=== PATIENT | male | born 1950 | race Caucasian/White ===

== ENCOUNTER → 2019-02-27 | Outpatient (CLI) | payer MEDICARE, MEDICAID | LOC: GOCC 16:06 | PROVIDERS: ATTEND Internal Medicine | DX: N40.1 Benign prostatic hyperplasia with lower urinary tract symptoms (principal); R53.81 Other malaise; D52.8 Other folate deficiency anemias; I10 Essential (primary) hypertension; F22 Delusional disorders ==

== ENCOUNTER 2019-02-28 15:55 | Inpatient (IN) | payer MEDICARE, MEDICAID ==
--- NOTE | 2019-02-28 16:08 | ED.PDOC ---
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 AND HE IS JOANNA SP STROKE WITH LEFT SIDED HEMIPARESIS - History of Present Illness Timing/Duration: getting worse, other - ONSET TUESDAY Severity: moderate Improving Factors: nothing Worsening Factors: nothing Associated Symptoms: denies symptoms Allergies/Adverse Reactions: Allergies Penicillins Allergy (Verified 07/31/15 13:17) Home Medications: Ambulatory Orders Amlodipine Besylate [Norvasc] 2.5 mg PO DAILY 07/31/15 Aspirin [Aspirin Adult Low Dose] 81 mg PO DAILY 07/31/15 Clopidogrel Bisulfate [Plavix] 75 mg PO DAILY 07/31/15 Cyanocobalamin [Vitamin B12] 1,000 mcg PO DAILY 07/31/15 Duloxetine HCl [Cymbalta] 07/31/15 Ferrous Sulfate 325 mg PO DAILY 07/31/15 Finasteride [Proscar] 5 mg PO DAILY 07/31/15 Fluticasone Prop 0.05% Nasal [Flonase Nasal K[place]aid] 50 mcg BNAS BID 07/31/15 Folic Acid 1 mg PO DAILY 07/31/15 Gabapentin [Neurontin] 100 mg PO BID 07/31/15 HYDROcodone 10MG/APAP 325MG [Sandy 10/325] 07/31/15 Levetiracetam [Keppra] 500 mg PO BID 07/31/15 Meloxicam [Mobic] 7.5 mg PO DAILY 07/31/15 Pseudoephedrine HCl 30 mg PO BID 07/31/15 Simvastatin [Zocor] 20 mg PO BEDTIME 07/31/15 Tamsulosin HCl [Flomax] 0.4 mcg CONNIE BID 07/31/15 raNITIdine HCL [Zantac] 150 mg PO BID 07/31/15 Review of Systems - Review of Systems Constitutional: States: chills, fever, weakness EENTM: States: no symptoms reported Respiratory: States: no symptoms reported Cardiology: States: no symptoms reported Gastrointestinal/Abdominal: States: no symptoms reported Genitourinary: States: no symptoms reported Musculoskeletal: States: no symptoms reported Skin: States: no symptoms reported Neurological: States: no symptoms reported Endocrine: States: no symptoms reported Hematologic/Lymphatic: States: no symptoms reported Past Medical History (General) - Patient Medical History Hx Seizures: Yes Hx Stroke: No Hx Dementia: No Hx Asthma: No Hx of COPD: No Hx Cardiac Disorders: Yes Hx Congestive Heart Failure: No Hx Pacemaker: No Hx Hypertension: Yes Hx Thyroid Disease: No Hx Diabetes: No Hx Gastroesophageal Reflux: Yes Hx Renal Disease: No Hx Cancer: No Hx of HIV: No Hx Hepatitis C: No Hx MRSA: Yes - Toe 2012 MRSA Source:: Wound - Vaccination History Hx Tetanus, Diphtheria Vaccination: Yes Hx Influenza Vaccination: Yes Hx Pneumococcal Vaccination: Yes - Social History Hx Tobacco Use: No Hx Chewing Tobacco Use: No Hx Alcohol Use: No Hx Substance Use: No Hx Substance Use Treatment: No Hx Depression: Yes Hx Physical Abuse: No Hx Emotional Abuse: No Hx Suspected Abuse: No - Female History Patient : No Family Medical History - Family History Father Family History: Unknown Physical Exam - Physical Exam General Appearance: Alert Eye Exam: bilateral normal Ears, Nose, Throat: hearing grossly normal, normal ENT inspection, normal pharynx Neck: non-tender, full range of motion, supple Respiratory: chest non-tender, lungs clear, normal breath sounds, no respiratory distress, no accessory muscle use, respiratory distress Cardiovascular/Chest: normal peripheral pulses, regular rate, rhythm, no edema, no gallop, no JVD, no murmur Gastrointestinal/Abdominal: normal bowel sounds, non tender, soft, no organomegaly, no pulsatile mass Back Exam: other - RIGHT BELOW ELBOW AMPUATATION LEFT HEMIPLEGIA OLD Progress - Results/Orders Results/Orders: Laboratory Tests 02/28/19 02/28/19 02/28/19 16:30 16:30 16:30 WBC 22.7 H* RBC 4.50 L Hgb 14.4 Hct 41.5 L MCV 92.1 MCH 32.0 H MCHC 34.7 RDW 13.8 Plt Count 332 MPV 8.3 Absolute Neuts (auto) Not Reportable Absolute Lymphs (auto) Not Reportable Absolute Monos (auto) Not Reportable Absolute Eos (auto) Not Reportable Neutrophils % Not Reportable Neutrophils % (Manual) 90.0 H Lymphocytes % Not Reportable Lymphocytes % (Manual) 3.0 Monocytes % Not Reportable Monocytes % (Manual) 6.0 Eosinophils % Not Reportable Basophils % Not Reportable Band Neutrophils 1.0 Platelet Estimate Normal Charles Cells 1+ RBC Morph Comment PT 12.0 H INR 1.20 H PTT (SP) 27.4 Sodium 130 L Potassium 2.3 L* Chloride 94 L Carbon Dioxide 21 Anion Gap 17.3 BUN 39 H Creatinine 1.64 H BUN/Creatinine Ratio 23.8 H Random Glucose 116 H Serum Osmolality 271.2 L Lactic Acid Calcium 7.9 L Total Bilirubin 1.2 H AST 70 H ALT 50 Alkaline Phosphatase 77 Serum Total Protein 6.7 Albumin 2.9 L Globulin 3.8 H Albumin/Globulin Ratio 0.8 L Urine Color Urine Appearance Urine pH Ur Specific [place] Urine Protein Urine Glucose (UA) Urine Ketones Urine Blood Urine Nitrite Urine Bilirubin Urine Urobilinogen Ur Leukocyte Esterase Urine RBC Urine WBC Ur Epithelial Cells Urine Bacteria 02/28/19 02/28/19 17:55 19:33 WBC RBC Hgb Hct MCV MCH MCHC RDW Plt Count MPV Absolute Neuts (auto) Absolute Lymphs (auto) Absolute Monos (auto) Absolute Eos (auto) Neutrophils % Neutrophils % (Manual) Lymphocytes % Lymphocytes % (Manual) Monocytes % Monocytes % (Manual) Eosinophils % Basophils % Band Neutrophils Platelet Estimate [place] Cells RBC Morph Comment PT INR PTT (SP) Sodium Potassium Chloride Carbon Dioxide Anion Gap BUN Creatinine BUN/Creatinine Ratio Random Glucose Serum Osmolality Lactic Acid 1.1 Calcium Total Bilirubin AST ALT Alkaline Phosphatase Serum Total Protein Albumin Globulin Albumin/Globulin Ratio Urine Color Yellow Urine Appearance Cloudy Urine pH 6.0 Ur Specific [place] 1.010 Urine Protein 30 Urine Glucose (UA) Negative Urine Ketones Negative Urine Blood Moderate H Urine Nitrite Negative Urine Bilirubin Negative Urine Urobilinogen 1.0 Ur Leukocyte Esterase Large H Urine RBC 20-30 H Urine WBC >50 H Ur Epithelial Cells 0-1 Urine Bacteria 3+ H CT ABD BLADDER WALL THICKENING AND PERINEPHRIC STRANDING NOTED PATIENT HAS BEEN STARTED ON IV NS WITH 40 OF K IV CEFEPIME GIVEN LACTATE IS NEG DISCUSSED WITH MR Smith DANO Departure - Departure Clinical Impression: Acute pyelonephritis Time of Disposition: 21:04 Disposition: Admit Patient Referrals: LIEN RAMIREZ [Primary Care Provider] - 1-2 Weeks Home Medications: Ambulatory Orders Amlodipine Besylate [Norvasc] 2.5 mg PO DAILY 07/31/15 Aspirin [Aspirin Adult Low Dose] 81 mg PO DAILY 07/31/15 Clopidogrel Bisulfate [Plavix] 75 mg PO DAILY 07/31/15 Cyanocobalamin [Vitamin B12] 1,000 mcg PO DAILY 07/31/15 Duloxetine HCl [Cymbalta] 07/31/15 Ferrous Sulfate 325 mg PO DAILY 07/31/15 Finasteride [Proscar] 5 mg PO DAILY 07/31/15 Fluticasone Prop 0.05% Nasal [Flonase Nasal Kincaid] 50 mcg BNAS BID 07/31/15 Folic Acid 1 mg PO DAILY 07/31/15 Gabapentin [Neurontin] 100 mg PO BID 07/31/15 HYDROcodone 10MG/APAP 325MG [Sandy 10/325] 07/31/15 Levetiracetam [Keppra] 500 mg PO BID 07/31/15 Meloxicam [Mobic] 7.5 mg PO DAILY 07/31/15 Pseudoephedrine HCl 30 mg PO BID 07/31/15 Simvastatin [Zocor] 20 mg PO BEDTIME 07/31/15 Tamsulosin HCl [Flomax] 0.4 mcg CONNIE BID 07/31/15 raNITIdine HCL [Zantac] 150 mg PO BID 07/31/15 Comments: DISCUSSED WITH MR Luis MATSON HOSPITALIST HE IS GOING TO ADMIT FOR INPATIENT IV ANTIBIOTICS AND CORRECTION OF HYPOKALEMIA
[2019-02-28] MEDS ORDERED: SODIUM CHLORIDE 0.9% 1000ML 1,000 ML IVS ONE ×2 (16:19→19:26)
--- NOTE | 2019-02-28 16:55 | RAD ---
EXAM: XR Chest, 1 View CLINICAL HISTORY: R/O PNEUMONIA TECHNIQUE: Frontal view of the chest. COMPARISON: No relevant prior studies available. FINDINGS: Limitations: None. Lungs: Unremarkable. No consolidation. Pleural space: Unremarkable. No pneumothorax. Heart: Unremarkable. No cardiomegaly. Mediastinum: Unremarkable. Bones/joints: Unremarkable. IMPRESSION: No acute findings. Electronically signed by: Melissa Griffin MD 02/28/2019 4:53 PM CDT
[2019-02-28] MEDS ORDERED: ACETAMINOPHEN 500 MG TAB PO ONE (17:36)
--- NOTE | 2019-02-28 18:54 | CT ---
EXAM: CT Abdomen and Pelvis With Intravenous Contrast CLINICAL HISTORY: DIVERTICULITIS TECHNIQUE: Axial computed tomography images of the abdomen and pelvis with intravenous contrast. Sagittal and coronal reformatted images were created and reviewed. This CT exam was performed using one or more of the following dose reduction techniques: automated exposure control, adjustment of the mA and/or kV according to patient size, and/or use of iterative reconstruction technique. COMPARISON: No relevant prior studies available. FINDINGS: Limitations: None. Lung bases: Unremarkable. No mass. No consolidation. ABDOMEN: Liver: Unremarkable. No mass. Gallbladder and bile ducts: Unremarkable. No calcified stones. No ductal dilation. Pancreas: Unremarkable. No mass. No ductal dilation. Spleen: Unremarkable. No splenomegaly. Adrenals: Unremarkable. No mass. Kidneys and ureters: There is mild heterogeneous enhancement of the kidneys and mild perinephric stranding. There are small cortical cysts incidentally noted measuring up to 6 mm. No hydronephrosis. Stomach and bowel: Moderate colonic stool present. No inflammation or obstruction. No mucosal thickening. PELVIS: Appendix: Appendix is well-seen and appears normal. Bladder: Unremarkable. No mass. Reproductive: Unremarkable as visualized. ABDOMEN and PELVIS: Intraperitoneal space: Unremarkable. No free air. No significant fluid collection. Bones/joints: No acute fracture. No dislocation. Soft tissues: Unremarkable. Vasculature: Unremarkable. No abdominal aortic aneurysm. Lymph nodes: Unremarkable. No enlarged lymph nodes. IMPRESSION: 1. Question pyelonephritis. Correlate with urinalysis. 2. No CT evidence of diverticulitis. Electronically signed by: Melissa Griffin MD 02/28/2019 6:53 PM CDT
[2019-02-28] MEDS ORDERED: CEFEPIME 2 GM in SODIUM CHL 0.9% 50ML MIN-BAG+ 50 ML IVPB ONE (19:25)
[2019-02-28] MEDS ORDERED: CEFEPIME 2 GM VIAL ONE (19:27)
[2019-02-28] MEDS ORDERED: KCL 40MEQ/NS 1,000 ML IVS PRN (19:27)
[2019-02-28] MEDS ORDERED: SODIUM CHL 0.9% 50ML MIN-BAG+ 50 ML IVPB ONE (19:28)
[2019-02-28] MEDS ORDERED: VANCOMYCIN HCL INJ 1,500 MG in SODIUM CHLORIDE 0.9% 250ML 250 ML IVPB ONE (23:20)
[2019-02-28] MEDS ORDERED: ACETAMINOPHEN 325 MG TAB PO PRN (23:23)
[2019-02-28] MEDS ORDERED: SODIUM CHLORIDE 0.9% (FLUSH) 10 ML SYG IV PRN (23:23)
[2019-02-28] MEDS ORDERED: IV SET AND CAP CHANGE INJ INJ SCH (23:30)
[2019-02-28] MEDS: MEROPENEM 1 GM in SODIUM CHL 0.9% 50ML MIN-BAG+ 50 ML IVPB SCH (23:39)
[2019-02-28] MEDS ORDERED: VANCOMYCIN HCL INJ 1,000 MG VIAL IVPB ONE (23:52)
[2019-02-28] MEDS ORDERED: VANCOMYCIN HCL INJ 500 MG VIAL ONE (23:52)
[2019-02-28] MEDS ORDERED: SODIUM CHLORIDE 0.9% 250ML 250 ML ONE (23:53)
[2019-02-28] MEDS ORDERED: SODIUM CHLORIDE 0.9% 50ML 50 ML ONE (23:53)
[2019-02-28] MEDS ORDERED: MEROPENEM 1 GM VIAL IVPB ONE (23:53)
[2019-03-01] MEDS: KCL 40MEQ/NS 1,000 ML IVS PRN ×2 (04:09→14:47)
[2019-03-01] MEDS ORDERED: VANCOMYCIN PER PHARMACY INJ SCH (08:00)
[2019-03-01] MEDS ORDERED: MEROPENEM 1 GM VIAL IVPB ONE ×3 (08:00→19:28)
[2019-03-01] MEDS ORDERED: SODIUM CHL 0.9% 50ML MIN-BAG+ 50 ML IVPB ONE ×3 (08:01→19:27)
[2019-03-01] MEDS: MEROPENEM 1 GM in SODIUM CHL 0.9% 50ML MIN-BAG+ 50 ML IVPB SCH ×3 (08:30→23:24)
--- NOTE | 2019-03-01 09:19 | HP ---
SUPERVISING PHYSICIAN: Tom Boss MD CHIEF COMPLAINT: History of fever. HISTORY OF PRESENT ILLNESS: Mr. Virgen is a 69 year-old male patient who is resident at [facility]. He was brought to the Emergency Room via 911 with complaints of a fever since Tuesday with some chills and weakness. He denies headache, cough, chest pain, abdominal pain. 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 On presentation to the Emergency Room, his vital signs showed he was febrile with a temperature of 101.0, mildly hypotensive with a blood pressure of 90/78, respirations 18, oxygen saturation 99% on room air. His laboratory studies showed he had a white count of 22,700 with a left shift and 1% bands. Chemistries showed a sodium of 130 with a potassium of 2.3, BUN 1.64, calcium initially was 7.9 with a lactic acid 1.1. Total bilirubin is up at 1.2, AST at 70, ALT normal at 50. Urinalysis showed a significant urinary tract infection with a moderate amount of blood, large amount of leukoesterase with microscopic showing 20 to 30 RBCs with greater than 50 WBCs, 0 to 1 epithelials with 3+ bacteria. Abdomen/pelvic CT showed a questionable pyelonephritis with no CT evidence of diverticulitis. He was started on antibiotic coverage with Ceftin. He is now going to be admitted for acute pyelonephritis and started on antibiotic treatment. PAST MEDICAL HISTORY: 1. Cardiovascular disease. 2. Hypertension. 3. Gastroesophageal reflux disease. CURRENT MEDICATIONS: 1. Nystatin 1 topical every 12 hours. 2. Loperamide. 3. Eyedrops, 2 drops to both eyes. 4. Guaifenesin 400 mg every 12 hours. 5. Liliana 60 mg daily. 6. Ibuprofen 600 mg q.d. as needed. 7. Multivitamins. 8. Magnesium hydroxide 30 mLs daily as needed for constipation. 9. Miralax 17 grams daily for constipation. 10. Norvasc 5 mg daily. 11. Vitamin B12, 1000 mg daily. 12. Aspirin 81 mg. 13. Trocar 5 mg at bedtime. ALLERGIES: PENICILLIN. FAMILY HISTORY: Unknown. SOCIAL HISTORY: The patient resides at [facility]. No history of tobacco use in the recent. Does not use drugs or alcohol. REVIEW OF SYSTEMS: CONSTITUTIONAL: Positive for general weakness, fever and chills. HEENT: Negative for earache, sore throat, headaches, nasal congestion,visual changes. CARDIOVASCULAR: Denies syncopal episodes or chest pain. GASTROINTESTINAL: Negative for nausea or vomiting, diarrhea, constipation or abdominal pains. GENITOURINARY: Denies dysuria, as noted in history of present illness significant pyuria on microscopic exam. SKIN: Denies any lesions or rashes, moles or unexplained changes. NEUROLOGICAL: Negative for ataxia or seizures, headaches, vision changes or syncopal episodes. PHYSICAL EXAMINATION: VITAL SIGNS: Temperature initially 101.0, pulse 98, blood pressure showing to be stable at 98/78. Oxygen saturation 99% on respirations at 18 and nasal cannula at rest. GENERAL: The patient is well kept, appears to be in no acute distress. HEENT: Tympanic membranes are clear bilaterally. Oropharynx pink and moist without any lesions. NECK: Supple, non-tender, full range of motion, no jugular venous distention. CHEST: Lungs are clear to auscultation without rhonchi, rales, or wheezes. CARDIOVASCULAR: Regular rate and rhythm without appreciable murmurs, rubs, or gallops. ABDOMEN: Soft, non-tender, positive bowel sounds. EXTREMITIES: Below elbow amputation on the right upper extremity with some left hemiparesis which is old residual. No cyanosis, clubbing, or edema. NEUROLOGIC: He was alert and oriented x 3. Facial features were without any notable asymmetry. Cranial nerves II through XII are grossly intact. LABORATORY: CBC showed a leukocytosis of 22,700 with a hemoglobin of 14.4 and hematocrit 45. Platelet count 332,000, differential did show a left shift with 1% bands. Coagulation studies were unremarkable. Chemistries showed sodium initially was 130 with potassium of 2.3, BUN 39, creatinine 1.64. Lactic acid 1.1, calcium 7.9, total bilirubin slightly elevated at 1.2 as well as AST at 70. All other liver functions within normal limits. Urinalysis showed microscopic with 20 to 30 RBCs, greater than 50 WBCs, 3+ bacteria, dipstick showed large leukoesterase with moderate amount of blood. RADIOLOGY: Chest x-ray initially in the Emergency Room per radiology interpretation showed no acute findings. He also had a CT of the abdomen and pelvis with contrast and per radiology interpretation was noted questionable pyelonephritis but no CT evidence of diverticulitis. ASSESSMENT: 1. Bilateral pyelonephritis. 2. Electrolyte imbalance to include hypokalemia. 3. Moderate dehydration, likely azotemia with patient's initial creatinine of 1.64. 4. Elevated bilirubin as well as AST, uncertain etiology at this point. PLAN: Mr. Virgen is going to be admitted for initiation of parenteral antibiotics to include Rocephin, this will be followed up with Ceftin given his risk factors for multidrug use organism derived from long-term care facility. We will review his home medications and start those once they have been updated and verified. Will anticipate length of stay to be 2 to 3 days. He does have a urine culture that is pending, we will await culture results before starting antibiotic therapy. Once tolerating antibiotic therapy, he can be discharged back. Until we can transition to outpatient management, we will continue to monitor and treat as needed. #[id number] [facility]
[2019-03-01] MEDS: MELOXICAM 7.5 MG TAB PO SCH (14:48)
[2019-03-01] MEDS: CLOPIDOGREL 75 MG TAB PO SCH (14:48)
[2019-03-01] MEDS: FOLIC ACID 1 MG TAB PO SCH (14:48)
[2019-03-01] MEDS: PSEUDOEPHEDRINE HCL 30 MG TAB PO SCH ×2 (14:49→21:15)
[2019-03-01] MEDS: levETIRAcetam 250 MG TAB PO SCH ×2 (14:49→21:15)
[2019-03-01] MEDS: amLODIPine BESYLATE 5 MG TAB PO SCH (14:49)
[2019-03-01] MEDS: GABAPENTIN 100 MG CAP PO SCH ×2 (14:57→21:16)
[2019-03-01] MEDS ORDERED: VANCOMYCIN HCL INJ 500 MG VIAL ONE (19:26)
[2019-03-01] MEDS ORDERED: SODIUM CHLORIDE 0.9% 250ML 250 ML ONE (19:27)
[2019-03-01] MEDS ORDERED: VANCOMYCIN HCL INJ 1,000 MG VIAL IVPB ONE (19:28)
[2019-03-01] MEDS ORDERED: VANCOMYCIN HCL INJ 1,000 MG, VANCOMYCIN HCL INJ 500 MG in SODIUM CHLORIDE 0.9% 250ML 25... IVPB SCH (20:00)
[2019-03-01] MEDS ORDERED: FINASTERIDE 5 MG TAB PO SCH (21:00)
[2019-03-01] MEDS ORDERED: FERROUS SULFATE 325 MG TAB PO SCH (21:00)
[2019-03-01] MEDS ORDERED: TAMSULOSIN 0.4 MG CAP PO SCH (21:00)
[2019-03-01] MEDS ORDERED: SIMVASTATIN 20 MG TAB PO SCH (21:00)
[2019-03-02] MEDS: KCL 40MEQ/NS 1,000 ML IVS PRN ×2 (01:05→07:41)
[2019-03-02] MEDS: MEROPENEM 1 GM in SODIUM CHL 0.9% 50ML MIN-BAG+ 50 ML IVPB SCH ×2 (08:10→15:08)
[2019-03-02] MEDS ORDERED: MEROPENEM 1 GM VIAL IVPB ONE ×2 (08:10→14:43)
[2019-03-02] MEDS ORDERED: SODIUM CHL 0.9% 50ML MIN-BAG+ 50 ML IVPB ONE ×2 (08:10→14:43)
[2019-03-02] MEDS: PSEUDOEPHEDRINE HCL 30 MG TAB PO SCH (08:22)
[2019-03-02] MEDS: levETIRAcetam 250 MG TAB PO SCH (08:22)
[2019-03-02] MEDS: CLOPIDOGREL 75 MG TAB PO SCH (08:25)
[2019-03-02] MEDS: FOLIC ACID 1 MG TAB PO SCH (08:25)
[2019-03-02] MEDS: GABAPENTIN 100 MG CAP PO SCH (08:27)
[2019-03-02] MEDS: MELOXICAM 7.5 MG TAB PO SCH (08:27)
[2019-03-02] MEDS: amLODIPine BESYLATE 5 MG TAB PO SCH (08:33)
[2019-03-02] MEDS ORDERED: ASPIRIN (ENTERIC COATED) 81 MG TAB PO SCH (09:00)
[2019-03-02] MEDS ORDERED: POTASSIUM CHLORIDE 20 MEQ TAB PO ONE (09:58)
[2019-03-02] MEDS ORDERED: ENOXAPARIN SODIUM 40 MG/0.4 ML SYG SUBCU SCH (10:00)
[2019-03-02 15:06] VITALS: BP 103/65; TEMP 97.9; O2SAT 98
[2019-03-02] MEDS ORDERED: VANCOMYCIN HCL INJ 1,000 MG in SODIUM CHLORIDE 0.9% 250ML 250 ML IVPB SCH (20:00)
--- NOTE | 2019-03-13 16:02 | DS ---
SUPERVISING PHYSICIAN: Tom Boss MD ADMISSION DIAGNOSES: 1. Bilateral pyelonephritis. 2. Electrolyte imbalance to include hypokalemia. 3. Moderate dehydration, likely azotemia with patient's initial creatinine of 1.64. 4. Elevated bilirubin as well as AST, uncertain etiology at this point. DISCHARGE DIAGNOSES: 1. Bilateral pyelonephritis secondary to Klebsiella pneumonia that was .positive extended spectrum betalactamase with sensitive pattern showing a fairly resistant dense sensitive to meropenem, Indocin, Levofloxacin, Zosyn and Bactrim. 2. Electrolyte imbalance with hypokalemia resolving with fluids. 3. Moderate dehydration due to prerenal azotemia with patient's baseline creatinine returning with fluids. 4. Elevated bilirubin, uncertain etiology need to followup as an outpatient. REASON FOR HOSPITALIZATION: Mr. Virgen is a 69 year-old male patient who is resident at [facility]. He was brought to the Emergency Room via 911 with complaints of a fever since Tuesday with some chills and weakness. He denies headache, cough, chest pain, abdominal pain. 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 On presentation to the Emergency Room, his vital signs showed he was febrile with a temperature of 101.0, mildly hypotensive with a blood pressure of 90/78, respirations 18, oxygen saturation 99% on room air. His laboratory studies showed he had a white count of 22,700 with a left shift and 1% bands. Chemistries showed a sodium of 130 with a potassium of 2.3, BUN 1.64, calcium initially was 7.9 with a lactic acid 1.1. Total bilirubin is up at 1.2, AST at 70, ALT normal at 50. Urinalysis showed a significant urinary tract infection with a moderate amount of blood, large amount of leukoesterase with microscopic showing 20 to 30 RBCs with greater than 50 WBCs, 0 to 1 epithelials with 3+ bacteria. Abdomen/pelvic CT showed a questionable pyelonephritis with no CT evidence of diverticulitis. He was started on antibiotic coverage with Ceftin. He is now going to be admitted for acute pyelonephritis and started on antibiotic treatment. LABORATORY: CBC on admission was 22,700, discharge was 14,300. Hemoglobin was stable at 12.8, hematocrit 37.3, platelet count was at 264,000. Differential did show a left shift that was improving prior to discharge. His coagulation studies showed normal PT/PTT. His chemistries did show a low potassium on admission of 2.3, discharge was 2.8. Otherwise, electrolytes had normalized prior to discharge. Carbon dioxide was slightly low at 19, BUN 22, creatinine had dropped from 1.64 to 1.01 prior to discharge and magnesium was 2.1. Bilirubin was slightly elevated at 1.4 with an elevated AST at 65. Urinalysis showed a moderate amount of blood. Microscopic revealed 20 to 30 RBCs, greater than 50 WBCs, 2+ bacteria. MICROBIOLOGY: As noted above. Blood cultures remained negative for 5 days. RADIOLOGY: Chest x-ray prior to admission with no acute findings. Abdominal/pelvis CT prior to admission with IV contrast per radiology interpretation showed questionable pyelonephritis. No acute evidence of diverticulitis. HOSPITAL COURSE: Mr. Virgen was admitted for pyelonephritis and started on antibiotic coverage with Cefepime which was continued along with vancomycin given in the Emergency Room and then this was changed to meropenem. He showed good response on meropenem, azithromycin, vancomycin prior to discharge and it was felt that he appeared clinically well enough to continue with outpatient management. PLAN: Mr. Virgen was discharged on antibiotic coverage with Bactrim based on culture and sensitivity reports. He was to return back to [facility] and resume all other medications and return to the hospital should he have any worsening or failure to improve his symptoms. Diet is usual as tolerated. Activities as per physical therapy. DISCHARGE MEDICATIONS: 1. Bactrim DS, 1 tablet twice a day, #20, no refills. All other medications prior to hospitalization were continued. Disposition: The patient is discharged back to [facility]. Condition on discharge was stable and improved. #[id number] [facility]
== END 2019-03-02 17:19 | DRG 690 ==
LOC: ER 15:55 → MS 22:09 → OBSVTOIN 22:09
PROVIDERS: ADMIT Nurse Practitioner Acute Care; ATTEND Nurse Practitioner Family
PROC: BW211ZZ Computerized Tomography (CT Scan) of Abdomen and Pelvis using Low Osmolar Contrast (ICD-10-PCS; principal; 2019-02-28)
DX: N10 Acute pyelonephritis (principal); I69.354 Hemiplegia and hemiparesis following cerebral infarction affecting left non-dominant side; E87.6 Hypokalemia; E86.0 Dehydration; I10 Essential (primary) hypertension; K21.9 Gastro-esophageal reflux disease without esophagitis; Z79.1 Long term (current) use of non-steroidal anti-inflammatories (NSAID); Z79.82 Long term (current) use of aspirin; Z88.0 Allergy status to penicillin; Z79.01 Long term (current) use of anticoagulants; Z79.899 Other long term (current) drug therapy; Z79.891 Long term (current) use of opiate analgesic; Z89.211 Acquired absence of right upper limb below elbow; Z16.12 Extended spectrum beta lactamase (ESBL) resistance; Z16.24 Resistance to multiple antibiotics; B96.1 Klebsiella pneumoniae [K. pneumoniae] as the cause of diseases classified elsewhere

== ENCOUNTER 2020-01-28 12:56 | Inpatient (IN) | payer MEDICARE, MEDICAID ==
[2020-01-28] MEDS ORDERED: SODIUM CHLORIDE 0.9% 1000ML 1,000 ML IVS ONE ×2 (13:12→13:58)
--- NOTE | 2020-01-28 13:33 | RAD ---
EXAM DESCRIPTION: Chest,1 View x-ray CLINICAL HISTORY: 69 years Male, fever, hypoxia, COMPARISON: 02/28/2019 IMPRESSION: The heart is at the upper limits of normal in size, with mild central pulmonary vascular congestion. Hazy bilateral airspace opacities which are greatest in the lower lung zones. The findings are concerning for multifocal pneumonia versus pulmonary edema. No large pleural effusion or pneumothorax. No acute osseous abnormality. Electronically signed by: Donald Rich MD 01/28/2020 1:30 PM CDT
[2020-01-28] MEDS ORDERED: CEFEPIME 2 GM in SODIUM CHL 0.9% 100ML MINI-BAG 100 ML IVPB ONE (13:34)
[2020-01-28] MEDS ORDERED: POTASSIUM CHLORIDE ELIXIR 20 MEQ/15 ML UD PO ONE (13:53)
[2020-01-28] MEDS ORDERED: SODIUM CHLORIDE 0.9% 1000ML 1,000 ML ONE (13:56)
[2020-01-28] MEDS ORDERED: DEXAMETHASONE INJ 4 MG/ML VIAL ONE (14:19)
[2020-01-28] MEDS ORDERED: KCL 40 MEQ/WATER FOR INJ 100ML 40 MEQ in PREMIX BAG 1 BAG IVPB ONE (14:24)
[2020-01-28] MEDS ORDERED: AZITHROMYCIN IV 500 MG in SODIUM CHLORIDE 0.9% 250ML 250 ML IVPB ONE (14:37)
--- NOTE | 2020-01-28 16:13 | ED.PDOC ---
History of Present Illness - General Chief Complaint: Respiratory Problem Stated Complaint: SOB, low O2 sat Time Seen by Provider: 01/28/20 12:58 Source: patient Exam Limitations: no limitations - History of Present Illness Initial Comments: The patient is a 69-year-old male presented emergency room secondary to confusion and fever at the residential. By the time the patient arrives here he is no longer confused and he is afebrile. 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 The reason for this was that the patient was hypotensive with systolics in the 70s. The patient reports that he feels a little bit short of breath. Oxygen saturations here are in the low 90s upon arrival. He is afebrile currently. Blood pressures are in the 70s over 50s. He does have mild scattered rhonchi and rales. No wheezes. Good air movement. No abdominal pain. No sore throat. No headache. No runny nose. No nausea vomiting or diarrhea. The patient is apparently in the residential due to the previous stroke. Timing/Duration: 4-6 hours Severity: moderate Improving Factors: nothing Worsening Factors: nothing Associated Symptoms: cough, loss of appetite, malaise, weakness - Generalized Allergies/Adverse Reactions: Allergies Penicillins Allergy (Intermediate, Verified 01/28/20 13:18) Home Medications: Ambulatory Orders Amlodipine Besylate [Norvasc] 5 mg PO DAILY 07/31/15 Aspirin [Aspirin Adult Low Dose] 81 mg PO DAILY 07/31/15 Clopidogrel Bisulfate [Plavix] 75 mg PO DAILY 07/31/15 Cyanocobalamin [Vitamin B12] 1,000 mcg PO DAILY 07/31/15 Ferrous Sulfate 325 mg PO BEDTIME 07/31/15 Finasteride [Proscar] 5 mg PO BEDTIME 07/31/15 Fluticasone Prop 0.05% Nasal [Flonase Nasal [place]] 50 mcg ALTNOS BID 07/31/15 Folic Acid 1 mg PO DAILY 07/31/15 Gabapentin [Neurontin] 100 mg PO BID 07/31/15 Levetiracetam [Keppra] 500 mg PO BID 07/31/15 Meloxicam [Mobic] 7.5 mg PO DAILY 07/31/15 Pseudoephedrine HCl 60 mg PO BID 07/31/15 Simvastatin [Zocor] 20 mg PO BEDTIME 07/31/15 Tamsulosin HCl [Flomax] 0.4 mcg PO BEDTIME 07/31/15 raNITIdine HCL [Zantac] 150 mg PO BID 07/31/15 Azithromycin 250 mg PO DAILY 03/01/19 Azithromycin 500 mg PO DAILY 03/01/19 Dextran 70-Hypromellose [Natural Balance Tears 0.1-0.3 %] 2 drop BOTH_EYES Q4HR PRN 03/01/19 Fexofenadine HCl [Liliana] 60 mg PO DAILY PRN 03/01/19 Guaifenesin 400 mg PO Q12HR PRN 03/01/19 Ibuprofen 600 mg PO TID PRN 03/01/19 Loperamide HCl 2 mg PO TID PRN 03/01/19 Magnesium Hydroxide [Milk Of Magnesia] 30 ml PO DAILY PRN 03/01/19 Multiple Vitamins W/ Minerals [Multivitamin Adults] 1 tablet PO DAILY 03/01/19 Nystatin (Bulk) [Nystatin] 1 applic TOP Q12HR 03/01/19 Polyethylene Glycol 3350 [Polyethylene Glycol] 17 gm PO DAILY PRN 03/01/19 Sulfa/Trimeth 800/160 (Ds) Tab [Bactrim DS] 1 tablet PO BID #20 tab 03/02/19 Review of Systems - Review of Systems Constitutional: States: fever, malaise, weakness - Generalized EENTM: States: no symptoms reported Respiratory: States: cough, short of breath - Mild Cardiology: States: no symptoms reported Gastrointestinal/Abdominal: States: no symptoms reported Genitourinary: States: no symptoms reported Musculoskeletal: States: no symptoms reported Skin: States: no symptoms reported Neurological: States: see HPI Endocrine: States: no symptoms reported Hematologic/Lymphatic: States: no symptoms reported All other Systems: No Change from Baseline Past Medical History (General) - Patient Medical History Hx Seizures: No Hx Stroke: Yes Hx Dementia: No Hx Asthma: No Hx of COPD: No Hx Cardiac Disorders: Yes Hx Congestive Heart Failure: No Hx Pacemaker: No Hx Hypertension: No Hx Thyroid Disease: No Hx Diabetes: No Hx Gastroesophageal Reflux: Yes Hx Renal Disease: No Hx Cancer: No Hx of HIV: No Hx Hepatitis C: No Hx MRSA: No MRSA Source:: Wound - Vaccination History Hx Tetanus, Diphtheria Vaccination: Yes Hx Influenza Vaccination: Yes Hx Pneumococcal Vaccination: Yes - Social History Hx Tobacco Use: No Hx Chewing Tobacco Use: No Hx Alcohol Use: No Hx Substance Use: No Hx Substance Use Treatment: No Hx Depression: Yes Hx Physical Abuse: No Hx Emotional Abuse: No Hx Suspected Abuse: No - Activities of Daily Living [facility]isted [facility] (if applicable):: [facility] - Female History Patient is a Female of Child Bearing Age (10 -59 yrs old): No Patient : No Family Medical History - Family History Father Family History: Unknown Physical Exam - Physical Exam General Appearance: Alert, Frail, No apparent distress, Ill Appearing Eye Exam: bilateral normal Ears, Nose, Throat: hearing grossly normal, normal pharynx Neck: non-tender, supple Respiratory: no respiratory distress, no accessory muscle use, rales, rhonchi Cardiovascular/Chest: normal peripheral pulses, regular rate, rhythm, no edema Peripheral Pulses: radial,right: 2+, radial,left: 2+ Gastrointestinal/Abdominal: non tender, soft Rectal Exam: deferred Back Exam: no CVA tenderness, no vertebral tenderness Extremity: normal range of motion, non-tender, pedal edema - Trace pedal edema. 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 Mild chronic edema to the left upper extremity. 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, alert, normal mood/affect, other - Chronic mild left-sided deficits from previous stroke Skin Exam: pallor Comments: Vital Signs - 24 hr 01/28/20 01/28/20 01/28/20 13:13 13:14 13:54 Temperature 96.9 F L Pulse Rate 85 Pulse Rate [ 85 85 71 brachial] Respiratory 18 18 18 Rate Blood Pressure 76/55 83/55 [Left Arm] O2 Sat by Pulse 93 L 92 L Oximetry 01/28/20 01/28/20 14:30 15:30 Temperature 96.5 F L Pulse Rate Pulse Rate [ 72 84 brachial] Respiratory 23 24 Rate Blood Pressure 90/66 96/67 [Left Arm] O2 Sat by Pulse 92 L Oximetry Progress - Progress Progress: 01/28/20 16:16 The patient is a 69-year-old male presented emergency room secondary to altered mental status and fever. The patient was found to be hypotensive, essentially in septic shock. The patient received a dose of dexamethasone along with 2 L of IV fluids. Blood pressures have improved significantly and the patient is mentating normally now. The patient is not technically hypoxic though his oxygen saturations are borderline. The patient has tested positive for villarreal virus. We still need a urine sample on the patient. Blood cultures have been taken. The patient has been started on cefepime, azithromycin and dexamethasone along with the supplemental oxygen. Admit for continued care for coronavirus pneumonia with hypotension. This is residential acquired. malvin ortiz [id number] - Results/Orders Results/Orders: 01/28/20 13:12 Telemetry .CONTINUOUS 01/28/20 13:13 UA [URINALYSIS] Stat 01/28/20 13:15 EKG STAT shows normal sinus rhythm at 72 bpm. Right axis deviation. Normal R wave progression. No ST segment or T wave changes indicative of acute ischemia. Borderline prolonged QT interval. Single view chest x-ray shows scattered infiltrates. Laboratory Results - last 24 hr 01/28/20 01/28/20 01/28/20 13:20 13:20 13:20 WBC 17.1 H RBC 4.21 L Hgb 13.6 L Hct 39.0 L MCV 92.7 MCH 32.3 H MCHC 34.9 RDW 13.6 Plt Count 224 MPV 8.5 Absolute Neuts (auto) 15.70 H Absolute Lymphs (auto) 0.60 L Absolute Monos (auto) 0.70 Absolute Eos (auto) 0.00 Absolute Basos (auto) 0.00 Neutrophils % 92.2 H Lymphocytes % 3.5 L Monocytes % 3.9 Eosinophils % 0.1 L Basophils % 0.3 PT INR PTT (SP) Sodium 135 Potassium 2.8 L Chloride 99 L Carbon Dioxide 23 Anion Gap 15.8 BUN 24 H Creatinine 1.38 H BUN/Creatinine Ratio 17.4 Random Glucose 161 H Serum Osmolality 277.6 Lactic Acid 2.4 H* Calcium 8.4 Magnesium Total Bilirubin 1.0 AST 70 H ALT 48 Alkaline Phosphatase 68 Creatine Kinase 1474 H* CK-MB (CK-2) 15.5 H* CK-MB (CK-2) % 1.05 Troponin I 0.02 B-Natriuretic Peptide 156.0 H Serum Total Protein 7.0 Albumin 3.2 Globulin 3.8 H Albumin/Globulin Ratio 0.8 L TSH Group A Strep Rapid 01/28/20 01/28/20 01/28/20 13:20 13:20 13:30 WBC RBC Hgb Hct MCV MCH MCHC RDW Plt Count MPV Absolute Neuts (auto) Absolute Lymphs (auto) Absolute Monos (auto) Absolute Eos (auto) Absolute Basos (auto) Neutrophils % Lymphocytes % Monocytes % Eosinophils % Basophils % PT 10.8 INR 1.09 PTT (SP) 33.6 H Sodium Potassium Chloride Carbon Dioxide Anion Gap BUN Creatinine BUN/Creatinine Ratio Random Glucose Serum Osmolality Lactic Acid Calcium Magnesium 2.1 Total Bilirubin AST ALT Alkaline Phosphatase Creatine Kinase CK-MB (CK-2) CK-MB (CK-2) % Troponin I B-Natriuretic Peptide Serum Total Protein Albumin Globulin Albumin/Globulin Ratio TSH 0.54 Group A Strep Rapid Negative Departure - Departure Clinical Impression: skilled nursing pneumonia, Septic shock, COVID-19, Delirium Disposition: Admit Patient Departure Forms: ED Discharge - Pt. Copy, Patient Portal Self Enrollment Referrals: LIEN RAMIREZ [Primary Care Provider] - 1-2 Weeks Home Medications: Ambulatory Orders Amlodipine Besylate [Norvasc] 5 mg PO DAILY 07/31/15 Aspirin [Aspirin Adult Low Dose] 81 mg PO DAILY 07/31/15 Clopidogrel Bisulfate [Plavix] 75 mg PO DAILY 07/31/15 Cyanocobalamin [Vitamin B12] 1,000 mcg PO DAILY 07/31/15 Ferrous Sulfate 325 mg PO BEDTIME 07/31/15 Finasteride [Proscar] 5 mg PO BEDTIME 07/31/15 Fluticasone Prop 0.05% Nasal [Flonase Nasal [place]] 50 mcg ALTNOS BID 07/31/15 Folic Acid 1 mg PO DAILY 07/31/15 Gabapentin [Neurontin] 100 mg PO BID 07/31/15 Levetiracetam [Keppra] 500 mg PO BID 07/31/15 Meloxicam [Mobic] 7.5 mg PO DAILY 07/31/15 Pseudoephedrine HCl 60 mg PO BID 07/31/15 Simvastatin [Zocor] 20 mg PO BEDTIME 07/31/15 Tamsulosin HCl [Flomax] 0.4 mcg PO BEDTIME 07/31/15 raNITIdine HCL [Zantac] 150 mg PO BID 07/31/15 Azithromycin 250 mg PO DAILY 03/01/19 Azithromycin 500 mg PO DAILY 03/01/19 Dextran 70-Hypromellose [Natural Balance Tears 0.1-0.3 %] 2 drop BOTH_EYES Q4HR PRN 03/01/19 Fexofenadine HCl [Liliana] 60 mg PO DAILY PRN 03/01/19 Guaifenesin 400 mg PO Q12HR PRN 03/01/19 Ibuprofen 600 mg PO TID PRN 03/01/19 Loperamide HCl 2 mg PO TID PRN 03/01/19 Magnesium Hydroxide [Milk Of Magnesia] 30 ml PO DAILY PRN 03/01/19 Multiple Vitamins W/ Minerals [Multivitamin Adults] 1 tablet PO DAILY 03/01/19 Nystatin (Bulk) [Nystatin] 1 applic TOP Q12HR 03/01/19 Polyethylene Glycol 3350 [Polyethylene Glycol] 17 gm PO DAILY PRN 03/01/19 Sulfa/Trimeth 800/160 (Ds) Tab [Bactrim DS] 1 tablet PO BID #20 tab 03/02/19 Decision To Admit - Decistion To Admit Decision to Admit Reason: Medical Nature Decision to Admit Date: 01/28/20 Decision to Admit Time: 16:19
--- NOTE | 2020-01-28 16:40 | HP ---
SUPERVISING PHYSICIAN: Tom Boss M.D. CHIEF COMPLAINT: Shortness of breath and hypoxia. HISTORY OF PRESENT ILLNESS: Mr. Virgen is a 69 year-old male patient that presented to the Emergency Room secondary to some confusion and fever that was reported at the prison where he resides at [facility]. Actually by the time the patient arrived to the Emergency Room, he was actually no longer confused or febrile. He did have a reported blood pressure there in the systolic in the 70s. The patient was endorsing he was feeling short of breath. On arrival to the Emergency Room, his blood pressures were in the 70s/50s with some noted rhonchi and rales on assessment. Initially on presentation to the Emergency Room, he was showing to be hypotensive with blood pressure 76/55, heart rate 85, he was afebrile at 96.9. He was actually showing saturations on room air at 93%. His chest x-ray showed hazy bilateral airspace opacities with the greatest in the lower lung zones concerning for multifocal pneumonia versus pulmonary edema. Laboratory studies showed he had a white count of 17,000 with hemoglobin 13.6, hematocrit 39.0 with a left shift. Coagulation studies showed he had an elevated D-dimer at 282, normal PT, PTT was elevated at 33.6. Chemistries showed he had a low potassium of 2.8 with an elevated creatinine of 1.38 but his lactic acid was elevated at 2.4. Troponin was normal at 0.02 but C reactive protein was elevated at 25.5. BNP is only slightly elevated at 156. Liver functions did show a slightly elevated AST at 70 but normal ALT. Urinalysis was just positive for some trace blood, otherwise within normal limits. Group A Strep was negative. Given that he was shown to be hypotensive, he was given fluids and started on antibiotics with Cefepime and azithromycin with concerns for multifocal pneumonia. He was also tested for COVID-19 and found to be positive. He is now going to be treated for COVID pneumonia with sepsis with underlying septic shock. He was given fluids in the Emergency Room, did show stabilization of his blood pressure improving up to 90/66 and repeat of his lactic acid after fluids showed that he had normalized to 1.6. He is now going to be admitted for treatment of underlying pneumonia secondary to COVID-19 and is essentially in stable condition at time of admission. PAST MEDICAL HISTORY: 1. Cardiovascular disease. 2. Hypertension. 3. Gastroesophageal reflux disease. 4. Previous cerebrovascular accident. No reported residual effects. PAST SURGICAL HISTORY: None listed. CURRENT MEDICATIONS: Awaiting an updated list of medications from the prison. ALLERGIES: PENICILLINS. FAMILY HISTORY: Noncontributory. SOCIAL HISTORY: The patient is a resident of [facility]. He has no history of tobacco use or alcohol or illicit drugs. REVIEW OF SYSTEMS: CONSTITUTIONAL: Positive for general weakness, fatigue, fevers and chills. HEENT: Negative for headaches, sore throats, nasal congestion, ear aches or vision changes. RESPIRATORY: Positive for cough and shortness of breath. CARDIOVASCULAR: Denies any chest pain, palpitations or syncopal episodes. GASTROINTESTINAL: Denies any nausea, vomiting, diarrhea, constipation or abdominal pain. GENITOURINARY: Denies any dysuria, hematuria, polyuria. MUSCULOSKELETAL: No reported arthralgias or joint swelling. SKIN: No reported lesions, rashes or unexplained changes. NEUROLOGIC: As noted in History of Present Illness. No reported ataxia or seizures. HEMATOLOGIC: Denies any easy bruising, unexplained bleeding or transfusion reactions. PHYSICAL EXAMINATION: VITAL SIGNS: On initial presentation, blood pressure 88/58, heart rate 108, showing 20 to 22 respirations, satting 96% on room air with a temperature of 97.8. GENERAL: The patient is alert. He does look frail and ill in appearance. Does not look to be in any distress at time of exam. HEENT: Tympanic membranes clear bilaterally. Oropharynx is pink, moist without any lesions. NECK: Supple, nontender with full range of motion. No jugular venous distention noted. CHEST: Lung sounds were fairly clear, just diminished towards the bases. No obvious rhonchi, wheezing or rales. HEART: Regular rate and rhythm without appreciable murmurs, gallops, or rubs. ABDOMEN: Soft, nontender. Positive bowel sounds. RECTAL: Exam was deferred. BACK: Without any CVA or vertebral tenderness. He had some left sided weakness residual. EXTREMITIES: Trace of edema into pedally bilaterally. There is a previous amputation to the right upper extremity. Some notable chronic edema to the left upper extremity. NEUROLOGIC: Cranial nerves II-XII are grossly intact as tested. He does have some chronic mild left sided weakness. SKIN: Warm, pink and dry. LABORATORY: White count 17,100, hemoglobin 13.6, hematocrit 39.0, platelet count 224,000. Differential does show a left shift. Coagulation studies showed an elevated D-dimer at 282. PTT was 33.6, PT was normal. Chemistry shows potassium 3.8 with BUN 24, creatinine 1.38. Initial lactic acid was 2.4, calcium 8.4, magnesium 2.1. Liver functions showed an elevated AST at 70, the rest was within normal limits total bilirubin and ALT. He did have an elevated creatinine kinase of 1474. C reactive protein was elevated at 25.5 with troponin 0.02. BNP was just barely elevated at 156. TSH was showing to be normal at 0.54. Urinalysis just showed trace of lysed blood. Group A Strep was negative. MICROBIOLOGY: Blood cultures are pending. Respiratory panel was positive for COVID-19. EKG showed normal sinus rhythm at 72 [id number] or T wave changes indicating acute ischemia. RADIOLOGY: Chest x-ray initially in the Emergency Room per radiology interpretation of single view chest showed the heart to be in the upper limits of normal with some mild central pulmonary vascular congestion with noted hazy bilateral airspace opacities which are greater in the lower lung saavedra concerning for multifocal pneumonia. ASSESSMENT: 1. COVID-19 pneumonia. 2. Sepsis with septic shock secondary to #1. 3. Electrolytes imbalance including hypokalemia. 4. History of previous cerebrovascular accident with left sided residual effects. 5. History of previous cardiovascular disease. 6. Hypertension. 7. Gastroesophageal reflux disease. 8. Renal insufficiency likely prerenal azotemia secondary to underlying hypotension and volume depletion. PLAN: Mr. Virgen is going to be admitted to the COVID floor for COVID pneumonia and associated septic shock. He was given fluids resuscitation in the Emergency Room and showing to be stable on his blood pressure currently with a normalizing of his lactic acid prior to admission. He will be started on protocol treatment for treatment of COVID pneumonia. He will be on DVT prophylaxis and Lovenox adjusted to D-dimer levels as needed. He will be on Decadron 6 mg along with antibiotics for coverage including Cefepime and azithromycin with consideration for possibly adding Vancomycin if he continues to show decline, but at this point he has only got 1 risk factor for MRSA. Will hold off on addition of antibiotics. He was given continued fluids in the Emergency Room. Will go ahead and continue with those fluids and then saline lock him and treat him with fluids p.r.n. as needed to maintain blood pressures, but with careful consideration to not be over zealous with his fluids considering he has underlying pneumonia associated with COVID. He is on Plavix. Again, will start him on Lovenox 40 mg subcue and readjust based off his D- dimer levels. I anticipate his length of stay to probably be at least 3 to 5 days. He will be in airborne isolation. Until we can transition him back to outpatient management will continue to monitor and treat as needed. #[id number] [facility]
[2020-01-28] MEDS ORDERED: SODIUM CHLORIDE 0.9% (FLUSH) 10 ML SYG IV PRN (20:13)
[2020-01-28] MEDS ORDERED: IBUPROFEN 400 MG TAB PO PRN (20:13)
[2020-01-28] MEDS ORDERED: ONDANSETRON INJ 4 MG/2 ML VIAL IV PRN (20:13)
[2020-01-28] MEDS ORDERED: ACETAMINOPHEN 325 MG TAB PO PRN (20:13)
[2020-01-28] MEDS ORDERED: ALBUTEROL INHALER 64 PUFF/8GM INH PRN (20:19)
[2020-01-28] MEDS ORDERED: TAMSULOSIN 0.4 MG CAP PO SCH (21:00)
[2020-01-28] MEDS: IV SET AND CAP CHANGE INJ INJ SCH (21:41)
[2020-01-28] MEDS: ENOXAPARIN SODIUM 40 MG/0.4 ML SYG SUBCU SCH (21:44)
[2020-01-28] MEDS ORDERED: NYSTATIN POWDER 15GM BTTL TOP PRN (22:22)
[2020-01-28] MEDS ORDERED: SODIUM CHL 0.9% 50ML MIN-BAG+ 50 ML IVPB ONE (22:35)
[2020-01-28] MEDS ORDERED: CEFEPIME 2 GM VIAL ONE (22:35)
[2020-01-28] MEDS: FINASTERIDE 5 MG TAB PO SCH (22:40)
[2020-01-28] MEDS: PSEUDOEPHEDRINE HCL 30 MG TAB PO SCH (22:41)
[2020-01-28] MEDS ORDERED: levETIRAcetam 250 MG TAB ONE (22:47)
[2020-01-28] MEDS ORDERED: FERROUS SULFATE 325 MG TAB ONE (22:47)
[2020-01-28] MEDS: GABAPENTIN 100 MG CAP PO SCH (22:48)
[2020-01-28] MEDS: SIMVASTATIN 20 MG TAB PO SCH (22:49)
[2020-01-28] MEDS ORDERED: SIMVASTATIN 20 MG TAB ONE (22:51)
[2020-01-29] MEDS: CEFEPIME 2 GM in SODIUM CHL 0.9% 50ML MIN-BAG+ 50 ML IVPB SCH ×2 (02:30→14:28)
[2020-01-29] MEDS ORDERED: PANTOPRAZOLE SODIUM IV 40 MG VIAL IV SCH (06:30)
--- NOTE | 2020-01-29 07:08 | RAD ---
EXAM: XR Chest, 1 View CLINICAL HISTORY: Pneumonia TECHNIQUE: Frontal view of the chest. COMPARISON: 01/28/2020. FINDINGS: Lungs: Increased asymmetric right interstitial thickening noted. There is no change mild coarse infiltrates within the lung bases. Pleural space: Unremarkable. No pneumothorax. Heart: Stable cardiac shadow. Mediastinum: Unremarkable. Bones/joints: Unremarkable. IMPRESSION: Increased asymmetric interstitial thickening throughout the right lung. Consider unilateral aspiration with chemical pneumonitis and worsening atypical/asymmetric pneumonia or pulmonary edema. Electronically signed by: Melissa Griffin MD 01/29/2020 7:06 AM CDT
[2020-01-29] MEDS: ALBUTEROL INHALER 64 PUFF/8GM INH SCH ×4 (08:25→21:30)
[2020-01-29] MEDS ORDERED: NON-FORMULARY MEDICATION 1 EA MIS (Levetiracetam [Keppra] 500 MG) PO SCH (09:00)
[2020-01-29] MEDS: CYANOCOBALAMIN 1,000 MCG TAB PO SCH (09:51)
[2020-01-29] MEDS: levETIRAcetam 250 MG TAB PO SCH ×2 (09:51→20:44)
[2020-01-29] MEDS: CLOPIDOGREL 75 MG TAB PO SCH (09:51)
[2020-01-29] MEDS: ASCORBIC ACID 500 MG TAB PO SCH (09:52)
[2020-01-29] MEDS: FOLIC ACID 1 MG TAB PO SCH (09:52)
[2020-01-29] MEDS: amLODIPine BESYLATE 5 MG TAB PO SCH (09:52)
[2020-01-29] MEDS: GABAPENTIN 100 MG CAP PO SCH ×2 (09:52→20:43)
[2020-01-29] MEDS: ASPIRIN (ENTERIC COATED) 81 MG TAB PO SCH (09:52)
[2020-01-29] MEDS: DEXAMETHASONE INJ 10 MG/ML VIAL IV SCH (10:05)
[2020-01-29] MEDS: AZITHROMYCIN IV 500 MG in SODIUM CHLORIDE 0.9% 250ML 250 ML IVPB SCH (10:06)
[2020-01-29] MEDS: PSEUDOEPHEDRINE HCL 30 MG TAB PO SCH ×2 (12:13→20:44)
[2020-01-29] MEDS ORDERED: DEXAMETHASONE INJ 4 MG/ML VIAL IV ONE (13:12)
[2020-01-29] MEDS ORDERED: SODIUM CHLORIDE 0.9% 500ML 500 ML ONE (14:22)
[2020-01-29] MEDS ORDERED: SODIUM CHLORIDE 0.9% 500ML 500 ML IVS ONE (14:33)
[2020-01-29] MEDS: FLUTICASONE PROP 0.05% NASAL 16 GM BTTL BNAS SCH ×2 (14:43→21:45)
[2020-01-29] MEDS ORDERED: FERROUS SULFATE 325 MG TAB ONE (19:50)
[2020-01-29] MEDS ORDERED: TAMSULOSIN 0.4 MG CAP ONE (19:50)
[2020-01-29] MEDS ORDERED: SIMVASTATIN 20 MG TAB ONE (19:51)
[2020-01-29] MEDS: FERROUS SULFATE 325 MG TAB PO SCH (20:43)
[2020-01-29] MEDS: FINASTERIDE 5 MG TAB PO SCH (20:44)
[2020-01-29] MEDS: TAMSULOSIN 0.4 MG CAP PO SCH (20:44)
[2020-01-29] MEDS: ENOXAPARIN SODIUM 40 MG/0.4 ML SYG SUBCU SCH (20:44)
[2020-01-29] MEDS: SIMVASTATIN 20 MG TAB PO SCH (20:44)
[2020-01-29] MEDS ORDERED: NON-FORMULARY MEDICATION 1 EA MIS (Ferrous Sulfate [Ferrous Sulfate] 325 MG) PO SCH (21:00)
[2020-01-30] MEDS: CEFEPIME 2 GM in SODIUM CHL 0.9% 50ML MIN-BAG+ 50 ML IVPB SCH ×2 (01:20→13:22)
[2020-01-30] MEDS: PANTOPRAZOLE SODIUM TAB 40 MG PO SCH (06:15)
--- NOTE | 2020-01-30 07:15 | RAD ---
EXAM DESCRIPTION: X-ray single view chest. CLINICAL HISTORY: 69 years Male, covid 19 COMPARISON: 01/29/2020 and 01/28/2020 TECHNIQUE: Single portable x-ray view of the chest performed on 01/30/2020 at 6:59 AM FINDINGS: The lungs are well expanded. There is moderate hazy opacification throughout the right lung and left inferior medial hemithorax similar when compared to the prior study. There is no evidence of a pneumothorax. The cardiac silhouette is normal in size and configuration. The mediastinal contours are normal. No acute osseous abnormality is identified. No focal soft tissue abnormalities are seen. Lines and tubes: None. IMPRESSION: Overall, no significant interval change when compared to the prior studies. There is ongoing moderate hazy opacification of the right lung and inferior medial left lung base. Electronically signed by: Ophelia Katz DO 01/30/2020 7:13 AM CDT
[2020-01-30] MEDS: ALBUTEROL INHALER 64 PUFF/8GM INH SCH ×4 (07:45→20:45)
[2020-01-30] MEDS: GABAPENTIN 100 MG CAP PO SCH ×2 (08:10→20:42)
[2020-01-30] MEDS: DEXAMETHASONE INJ 10 MG/ML VIAL IV SCH (08:11)
[2020-01-30] MEDS: FOLIC ACID 1 MG TAB PO SCH (08:11)
[2020-01-30] MEDS: CYANOCOBALAMIN 1,000 MCG TAB PO SCH (08:11)
[2020-01-30] MEDS: ASCORBIC ACID 500 MG TAB PO SCH (08:11)
[2020-01-30] MEDS: FLUTICASONE PROP 0.05% NASAL 16 GM BTTL BNAS SCH ×2 (08:11→20:43)
[2020-01-30] MEDS: ASPIRIN (ENTERIC COATED) 81 MG TAB PO SCH (08:11)
[2020-01-30] MEDS: amLODIPine BESYLATE 5 MG TAB PO SCH (08:11)
[2020-01-30] MEDS: PSEUDOEPHEDRINE HCL 30 MG TAB PO SCH ×2 (08:11→20:40)
[2020-01-30] MEDS: levETIRAcetam 250 MG TAB PO SCH ×2 (08:11→20:41)
[2020-01-30] MEDS: CLOPIDOGREL 75 MG TAB PO SCH (08:11)
[2020-01-30] MEDS: AZITHROMYCIN IV 500 MG in SODIUM CHLORIDE 0.9% 250ML 250 ML IVPB SCH (08:12)
--- NOTE | 2020-01-30 08:14 | PN ---
SUPERVISING PHYSICIAN: Tom Boss MD DATE: 01/29/20 SUBJECTIVE: The patient is still having some episodes of hypotension intermittently, but responding to fluids. Vital signs other than that are remaining stable. He is not having any complaints. He has been afebrile. OBJECTIVE: VITAL SIGNS: Blood pressure 88/58, heart rate 85, O2 saturations 96% on room air. GENERAL: The patient is resting comfortably, does not appear to be in any acute distress. He is alert. CHEST: Lung sounds remain fairly clear, again diminished towards the bases. HEART: Regular rate and rhythm. ABDOMEN: Soft, nontender. Positive bowel sounds. EXTREMITIES: Continues to show trace of edema of the lower extremities. He does have some chronic left upper extremity edema and amputation of the right upper extremity. NEUROLOGIC: Alert and oriented times three. LABORATORY: White count down to 12,800, hemoglobin 12.8, hematocrit 37.0, platelet count 217,000 and he does have a left shift. Coagulation studies show no new findings today. Chemistries show potassium up to 3.3, BUN 22, creatinine 0.9 down from 1.38. Calcium 8.1, lactic acid normalized to 1.6. RADIOLOGY: Repeat chest x-ray this morning per radiologic interpretation shows increased asymmetric interstitial thickening throughout the right lung with consideration for possible unilateral aspiration with chemical pneumonitis and worsening atypical/asymmetric pneumonia or pulmonary edema. ASSESSMENT: 1. COVID-19 pneumonia. 2. Sepsis with septic shock secondary to #1, still requiring intermittent fluid boluses. 3. Electrolyte imbalance including hypokalemia, improving. 4. Renal insufficiency, likely due to prerenal azotemia and hypotension, now at baseline levels. 5. History of previous cerebrovascular accident with left sided residual effects. 6. History of cardiovascular disease. 7. Hypertension, but being hypotensive. 8. Gastroesophageal reflux disease. PLAN: We will continue with current plan of care with COVID protocol and treat underlying pneumonia. He is showing some mild hypotension at times and does respond to fluids, but we will just give him boluses as needed to normalize his lactic acid and I do not want to give him too much fluid. Although his x-ray shows questionable pneumonitis versus aspiration, I have a very low suspicion for thinking he has got aspirated and it is more related to his underlying COVID pneumonia and he is showing improvement with current treatment plan. Therefore, we will continue with antibiotics that we have him on, which are cefepime and azithromycin. I do not see any reason to put him on vancomycin at this point, nor do I see any reason to change him over to either clindamycin or other in regards to possible aspiration. Again, we will continue to monitor his labs and x-rays and treat as needed. He does remain on Lovenox at this point. His D- dimer will be repeated tomorrow. Again, we will adjust as needed. Until the patient can transition to outpatient management, we will continue to monitor and treat as needed. #[id number] [facility]
[2020-01-30] MEDS: SIMVASTATIN 20 MG TAB PO SCH (20:40)
[2020-01-30] MEDS: FERROUS SULFATE 325 MG TAB PO SCH (20:40)
[2020-01-30] MEDS: FINASTERIDE 5 MG TAB PO SCH (20:41)
[2020-01-30] MEDS: TAMSULOSIN 0.4 MG CAP PO SCH (20:41)
[2020-01-30] MEDS: ENOXAPARIN SODIUM 40 MG/0.4 ML SYG SUBCU SCH (20:42)
[2020-01-31] MEDS: CEFEPIME 2 GM in SODIUM CHL 0.9% 50ML MIN-BAG+ 50 ML IVPB SCH ×2 (01:38→14:03)
[2020-01-31] MEDS: PANTOPRAZOLE SODIUM TAB 40 MG PO SCH (06:21)
--- NOTE | 2020-01-31 07:15 | RAD ---
EXAM DESCRIPTION: Chest,1 View CLINICAL HISTORY: 69 years Male, covid PNA COMPARISON: Yesterday Findings: One view(s)/radiograph(s) Cardiac silhouette and pulmonary vasculature are within normal limits. No pneumothorax. No pleural effusion. Similar to slightly increased patchy multifocal bilateral infiltrates most notably in the right lung base. No acute osseous abnormality. IMPRESSION: Similar to slightly increased patchy multifocal bilateral infiltrates. Electronically signed by: Reji Donato MD 01/31/2020 7:13 AM CDT
[2020-01-31] MEDS: ASPIRIN (ENTERIC COATED) 81 MG TAB PO SCH (08:01)
[2020-01-31] MEDS: CLOPIDOGREL 75 MG TAB PO SCH (08:01)
[2020-01-31] MEDS: PSEUDOEPHEDRINE HCL 30 MG TAB PO SCH ×2 (08:01→20:41)
[2020-01-31] MEDS: levETIRAcetam 250 MG TAB PO SCH ×2 (08:01→20:41)
[2020-01-31] MEDS: GABAPENTIN 100 MG CAP PO SCH ×2 (08:01→20:41)
[2020-01-31] MEDS: ASCORBIC ACID 500 MG TAB PO SCH (08:01)
[2020-01-31] MEDS: CYANOCOBALAMIN 1,000 MCG TAB PO SCH (08:01)
[2020-01-31] MEDS: FOLIC ACID 1 MG TAB PO SCH (08:01)
[2020-01-31] MEDS: FLUTICASONE PROP 0.05% NASAL 16 GM BTTL BNAS SCH ×2 (08:02→20:42)
[2020-01-31] MEDS: AZITHROMYCIN IV 500 MG in SODIUM CHLORIDE 0.9% 250ML 250 ML IVPB SCH (08:02)
[2020-01-31] MEDS: DEXAMETHASONE INJ 10 MG/ML VIAL IV SCH (08:02)
[2020-01-31] MEDS: amLODIPine BESYLATE 5 MG TAB PO SCH (08:02)
--- NOTE | 2020-01-31 08:18 | PN ---
SUPERVISING PHYSICIAN: Tom Boss MD DATE: 01/30/20 SUBJECTIVE: The patient is doing okay as far as maintaining his blood pressures now. He has had some fluids and staying stable. He is actually able to maintain O2 saturations on room air. OBJECTIVE: VITAL SIGNS: Temperature 97.9, pulse 78, blood pressure 93/65, respirations 20, saturation 96% on room air. GENERAL: The patient is resting comfortably, does not appear to be in any acute distress. He is alert. CHEST: Lung sounds remain fairly clear, again diminished towards the bases. HEART: Regular rate and rhythm. ABDOMEN: Soft, nontender. Positive bowel sounds. EXTREMITIES: Continues to show trace of edema of the lower extremities. He does have some chronic left upper extremity edema and amputation of the right upper extremity. NEUROLOGIC: Alert and oriented times three. LABORATORY: White count 12,600, hemoglobin 12.4, hematocrit 35.5, platelet count 342,000 and differential does continue to show a left shift. Coagulation studies show fibrinogen 534, D-dimer pending. Chemistries show potassium is down a little bit to 2.8. Creatinine 0.93, calcium 7.9. CK 210 which is down from admission of 1474. C-reactive protein is down from 25.5 to 7.8. RADIOLOGY: Chest x-ray today per radiologic interpretation shows overall no significant interval changes compared to previous studies. There is ongoing mild hazy opacification of right lung and inferomedial left lung base. ASSESSMENT: 1. COVID-19 pneumonia. 2. Sepsis with septic shock secondary to #1, still requiring intermittent fluid boluses. 3. Electrolyte imbalance including hypokalemia, improving. 4. Renal insufficiency, likely due to prerenal azotemia and hypotension, now at baseline levels. 5. History of previous cerebrovascular accident with left sided residual effects. 6. History of cardiovascular disease. 7. Hypertension, but being hypotensive. 8. Gastroesophageal reflux disease. PLAN: We will continue with current plan of care with COVID protocol. His numbers are actually starting to trend down well. He does maintain O2 without any supplemental oxygen at this point, but we are still waiting on his D-dimer. There is no significant evidence of that he getting aspiration and we will leave him on cefepime and azithromycin. He does remain on Lovenox until we get his D- dimer back and we will adjust as needed. Hopefully, he can transition back to [facility] within the next 24 to 48 hours. Until then, we will continue to monitor and treat as needed. #[id number] [facility]
[2020-01-31] MEDS: ALBUTEROL INHALER 64 PUFF/8GM INH SCH ×4 (09:32→21:02)
[2020-01-31] MEDS: POTASSIUM CHLORIDE 20 MEQ TAB PO SCH ×2 (12:11→15:24)
--- NOTE | 2020-01-31 15:20 | PN ---
SUPERVISING PHYSICIAN: Tom Boss M.D. DATE: 01/31/20 SUBJECTIVE: The patient is lying in bed. He seems to be improving clinically. He has no complaints at this time. OBJECTIVE: VITAL SIGNS: Temperature 97.7, heart rate 62, blood pressure 104/62, respiratory rate 18, O2 saturation 91% on 2 liters nasal cannula. RESPIRATORY: Diminished breath sounds at the bases with a few scattered rhonchi, otherwise clear to auscultation. CARDIAC: Regular rate and rhythm. NEUROLOGIC: He is awake, alert and oriented times three. LABORATORY: WBCs are 9,200 with hemoglobin 13.3, hematocrit 37.8. He has 3 bands. He has a left shift on his differential. Lymphocytes are low at 0.8 and 6.3%. Potassium 2.8, chloride 112, calcium 7.9. Preliminary blood cultures show no growth after 48 hours. Chest x-ray shows similar to slightly increased patchy multifocal bilateral infiltrates. All other labs and films have been reviewed via the EMR. ASSESSMENT: 1. COVID-19 pneumonia. 2. Sepsis with septic shock secondary to #1, still requiring intermittent fluid boluses. 3. Electrolyte imbalance including hypokalemia, improving. 4. Renal insufficiency, likely due to prerenal azotemia and hypotension, now at baseline levels. 5. History of previous cerebrovascular accident with left sided residual effects. 6. History of cardiovascular disease. 7. Hypertension, but being hypotensive. 8. Gastroesophageal reflux disease. PLAN: We will continue present supportive care. Continue to monitor his cultures and COVID lab as ordered. He will also continue on the same antibiotics for now. Will order routine lab as well as COVID lab for in the morning, as well as another chest x-ray. I have given him some potassium supplementation. I will recheck his potassium level tonight at 9:00. We encourage good pulmonary hygiene. Will continue to monitor closely and follow as needed. [facility][id number] [facility]
[2020-01-31] MEDS: SIMVASTATIN 20 MG TAB PO SCH (20:41)
[2020-01-31] MEDS: FERROUS SULFATE 325 MG TAB PO SCH (20:41)
[2020-01-31] MEDS: TAMSULOSIN 0.4 MG CAP PO SCH (20:42)
[2020-01-31] MEDS: ENOXAPARIN SODIUM 40 MG/0.4 ML SYG SUBCU SCH (20:42)
[2020-01-31] MEDS: FINASTERIDE 5 MG TAB PO SCH (20:42)
[2020-01-31] MEDS: IV SET AND CAP CHANGE INJ INJ SCH (22:18)
[2020-02-01] MEDS: CEFEPIME 2 GM in SODIUM CHL 0.9% 50ML MIN-BAG+ 50 ML IVPB SCH ×2 (01:45→13:15)
[2020-02-01] MEDS: PANTOPRAZOLE SODIUM TAB 40 MG PO SCH (06:01)
--- NOTE | 2020-02-01 06:50 | RAD ---
EXAM: XR Chest, 1 View CLINICAL HISTORY: covid TECHNIQUE: Frontal view of the chest. COMPARISON: 01/31/2020. FINDINGS: Lungs: Bilateral interstitial and airspace consolidation again noted increased diffusely on the right. Pleural space: Unremarkable. No pneumothorax. Heart: Stable cardiac shadow. Mediastinum: Unremarkable. Bones/joints: Unremarkable. IMPRESSION: Bilateral interstitial and airspace consolidation again noted increased diffusely on the right. Electronically signed by: Melissa Griffin MD 02/01/2020 6:49 AM CDT
[2020-02-01] MEDS: ALBUTEROL INHALER 64 PUFF/8GM INH SCH ×4 (08:40→20:30)
[2020-02-01] MEDS: CLOPIDOGREL 75 MG TAB PO SCH (09:03)
[2020-02-01] MEDS: FOLIC ACID 1 MG TAB PO SCH (09:03)
[2020-02-01] MEDS: GABAPENTIN 100 MG CAP PO SCH ×2 (09:03→20:28)
[2020-02-01] MEDS: PSEUDOEPHEDRINE HCL 30 MG TAB PO SCH ×2 (09:03→20:27)
[2020-02-01] MEDS: ASPIRIN (ENTERIC COATED) 81 MG TAB PO SCH (09:03)
[2020-02-01] MEDS: DEXAMETHASONE INJ 10 MG/ML VIAL IV SCH (09:03)
[2020-02-01] MEDS: ASCORBIC ACID 500 MG TAB PO SCH (09:03)
[2020-02-01] MEDS: levETIRAcetam 250 MG TAB PO SCH ×2 (09:03→20:27)
[2020-02-01] MEDS: AZITHROMYCIN IV 500 MG in SODIUM CHLORIDE 0.9% 250ML 250 ML IVPB SCH (09:03)
[2020-02-01] MEDS: CYANOCOBALAMIN 1,000 MCG TAB PO SCH (09:03)
[2020-02-01] MEDS: FLUTICASONE PROP 0.05% NASAL 16 GM BTTL BNAS SCH ×2 (09:03→20:28)
[2020-02-01] MEDS: amLODIPine BESYLATE 5 MG TAB PO SCH (09:03)
[2020-02-01] MEDS ORDERED: POTASSIUM CHLORIDE 20 MEQ TAB PO ONE (10:32)
[2020-02-01] MEDS: FERROUS SULFATE 325 MG TAB PO SCH (20:27)
[2020-02-01] MEDS: TAMSULOSIN 0.4 MG CAP PO SCH (20:27)
[2020-02-01] MEDS: SIMVASTATIN 20 MG TAB PO SCH (20:27)
[2020-02-01] MEDS: FINASTERIDE 5 MG TAB PO SCH (20:28)
[2020-02-01] MEDS: ENOXAPARIN SODIUM 40 MG/0.4 ML SYG SUBCU SCH (20:28)
[2020-02-02] MEDS: CEFEPIME 2 GM in SODIUM CHL 0.9% 50ML MIN-BAG+ 50 ML IVPB SCH ×2 (02:08→15:02)
[2020-02-02] MEDS: PANTOPRAZOLE SODIUM TAB 40 MG PO SCH ×2 (06:03→06:24)
[2020-02-02] MEDS: ALBUTEROL INHALER 64 PUFF/8GM INH SCH ×4 (08:30→20:30)
--- NOTE | 2020-02-02 09:08 | PN ---
SUPERVISING PHYSICIAN: Tom Boss M.D. DATE: 02/01/20 SUBJECTIVE: The patient is lying in bed. He answers questions appropriate and has no complaints. . OBJECTIVE: VITAL SIGNS: Temperature 98.6, heart rate 75, blood pressure 115/75, respiratory rate 18, O2 saturation 95%. RESPIRATORY: Essentially clear to auscultation bilaterally. He is diminished at the bases. CARDIAC: Regular rate and rhythm. GI: Abdomen soft, nondistended, non-tender. NEUROLOGIC: He is awake, alert and oriented times three. LABORATORY: WBCs are 7.4, hemoglobin 13.8, hematocrit 39.3, lymphocytes low at 0.9. He has a left shift on his differential. D-dimer has increased to 930. Electrolytes are basically within normal limits except for potassium low at 3.3, calcium low at 7.9. C-reactive protein went up to 14.4, LDH went up some to 241. Preliminary blood cultures show no growth after 3 days. Chest x-ray shows bilateral interstitial lung air space consolidation, again noted increased diffusely on the right . All other labs and films have been reviewed via the EMR. ASSESSMENT: 1. COVID-19 pneumonia. 2. Sepsis with septic shock secondary to #1, still requiring intermittent fluid boluses. 3. Electrolyte imbalance including hypokalemia, improving. 4. Renal insufficiency, likely due to prerenal azotemia and hypotension, now at baseline levels. 5. History of previous cerebrovascular accident with left sided residual effects. 6. History of cardiovascular disease. 7. Hypertension, but being hypotensive. 8. Gastroesophageal reflux disease. PLAN: We will continue present supportive care including his antibiotics. I will monitor his labs and cultures as they become available. I have given him some potassium supplementation. Will repeat his labs in the morning. I have encouraged good pulmonary hygiene. We will continue to monitor closely and follow as needed. [facility][id number]
[2020-02-02] MEDS: PSEUDOEPHEDRINE HCL 30 MG TAB PO SCH ×2 (09:09→19:43)
[2020-02-02] MEDS: DEXAMETHASONE INJ 10 MG/ML VIAL IV SCH (09:09)
[2020-02-02] MEDS ORDERED: POTASSIUM CHLORIDE 20 MEQ TAB PO ONE (09:32)
[2020-02-02] MEDS: CLOPIDOGREL 75 MG TAB PO SCH (09:46)
[2020-02-02] MEDS: GABAPENTIN 100 MG CAP PO SCH ×2 (09:46→19:44)
[2020-02-02] MEDS: FOLIC ACID 1 MG TAB PO SCH (09:46)
[2020-02-02] MEDS: ASCORBIC ACID 500 MG TAB PO SCH (09:46)
[2020-02-02] MEDS: CYANOCOBALAMIN 1,000 MCG TAB PO SCH (09:46)
[2020-02-02] MEDS: levETIRAcetam 250 MG TAB PO SCH ×2 (09:46→19:43)
[2020-02-02] MEDS: ASPIRIN (ENTERIC COATED) 81 MG TAB PO SCH (09:46)
[2020-02-02] MEDS: amLODIPine BESYLATE 5 MG TAB PO SCH (09:46)
[2020-02-02] MEDS: FLUTICASONE PROP 0.05% NASAL 16 GM BTTL BNAS SCH ×2 (09:47→19:44)
[2020-02-02] MEDS: SODIUM CHLORIDE 0.9% (FLUSH) 10 ML SYG IV SCH ×2 (09:47→19:44)
[2020-02-02] MEDS: AZITHROMYCIN IV 500 MG in SODIUM CHLORIDE 0.9% 250ML 250 ML IVPB SCH (10:02)
--- NOTE | 2020-02-02 16:03 | PN ---
SUPERVISING PHYSICIAN: Tom Boss M.D. DATE: 02/02/20 SUBJECTIVE: The patient is sitting up in bed. He is awake and alert. No complaints of shortness of breath, chest pain, nausea or vomiting. OBJECTIVE: VITAL SIGNS: Temperature 98.1, heart rate 72, blood pressure 116/76, respiratory rate 18, O2 saturation 96% on room air. RESPIRATORY: Diminished at the bases. CARDIAC: Regular rate and rhythm. NEUROLOGIC: He is awake, alert and oriented times three. LABORATORY: WBCs are 8.9 with hemoglobin 13.2, hematocrit 38.1. He has a left shift on his differential. Fibrinogen is 534 and D-dimer is up to 1,110. Potassium is 3.4, calcium 8.2, LD is 234. C reactive protein is 11.9. Preliminary blood cultures show no growth after 5 days. All other labs and films have been reviewed via the EMR. ASSESSMENT: 1. COVID-19 pneumonia. 2. Sepsis with septic shock secondary to #1, still requiring intermittent fluid boluses. 3. Electrolyte imbalance including hypokalemia, improving. 4. Renal insufficiency, likely due to prerenal azotemia and hypotension, now at baseline levels. 5. History of previous cerebrovascular accident with left sided residual effects. 6. History of cardiovascular disease. 7. Hypertension, but being hypotensive. 8. Gastroesophageal reflux disease. PLAN: We will continue present supportive care. He has received some potassium supplementation. Will repeat his lab and chest x-ray in the morning. I have also started him on Align as well as Mucinex. I have discontinued his Lovenox at 40 mg at h.s. and will increase it to 1 mg per kg at h.s. Again, we will order a D-dimer tomorrow as well as a fibrinogen and routine lab. Will continue to monitor closely and follow as needed. #[id number] [facility]
[2020-02-02] MEDS ORDERED: BIFIDOBACTERIUM INFANTIS 4 MG CAP ONE (19:15)
[2020-02-02] MEDS ORDERED: guaiFENesin ER TAB 600 MG TAB ONE (19:15)
[2020-02-02] MEDS ORDERED: ENOXAPARIN SODIUM 80 MG/0.8 ML SYG SUBCU ONE (19:15)
[2020-02-02] MEDS: BIFIDOBACTERIUM INFANTIS 4 MG CAP PO SCH (19:43)
[2020-02-02] MEDS: guaiFENesin ER TAB 600 MG TAB PO SCH (19:43)
[2020-02-02] MEDS: TAMSULOSIN 0.4 MG CAP PO SCH (19:43)
[2020-02-02] MEDS: FINASTERIDE 5 MG TAB PO SCH (19:43)
[2020-02-02] MEDS: ENOXAPARIN SODIUM 80 MG/0.8 ML SYG SUBCU SCH (19:44)
[2020-02-02] MEDS: SIMVASTATIN 20 MG TAB PO SCH (19:44)
[2020-02-02] MEDS: FERROUS SULFATE 325 MG TAB PO SCH (19:44)
[2020-02-03] MEDS: CEFEPIME 2 GM in SODIUM CHL 0.9% 50ML MIN-BAG+ 50 ML IVPB SCH ×2 (02:24→14:52)
[2020-02-03] MEDS: PANTOPRAZOLE SODIUM TAB 40 MG PO SCH (05:49)
[2020-02-03] MEDS: ALBUTEROL INHALER 64 PUFF/8GM INH SCH ×4 (08:10→20:35)
[2020-02-03] MEDS: ASPIRIN (ENTERIC COATED) 81 MG TAB PO SCH (08:27)
[2020-02-03] MEDS: DEXAMETHASONE INJ 10 MG/ML VIAL IV SCH (08:27)
[2020-02-03] MEDS: FOLIC ACID 1 MG TAB PO SCH (08:27)
[2020-02-03] MEDS: BIFIDOBACTERIUM INFANTIS 4 MG CAP PO SCH ×2 (08:27→20:53)
[2020-02-03] MEDS: FLUTICASONE PROP 0.05% NASAL 16 GM BTTL BNAS SCH ×2 (08:27→20:55)
[2020-02-03] MEDS: CYANOCOBALAMIN 1,000 MCG TAB PO SCH (08:28)
[2020-02-03] MEDS: PSEUDOEPHEDRINE HCL 30 MG TAB PO SCH ×2 (08:28→20:53)
[2020-02-03] MEDS: GABAPENTIN 100 MG CAP PO SCH ×2 (08:28→20:53)
[2020-02-03] MEDS: amLODIPine BESYLATE 5 MG TAB PO SCH (08:28)
[2020-02-03] MEDS: levETIRAcetam 250 MG TAB PO SCH (08:28)
[2020-02-03] MEDS: ASCORBIC ACID 500 MG TAB PO SCH (08:28)
[2020-02-03] MEDS: CLOPIDOGREL 75 MG TAB PO SCH (08:28)
[2020-02-03] MEDS: SODIUM CHLORIDE 0.9% (FLUSH) 10 ML SYG IV SCH ×2 (08:28→20:55)
[2020-02-03] MEDS: AZITHROMYCIN IV 500 MG in SODIUM CHLORIDE 0.9% 250ML 250 ML IVPB SCH (08:28)
[2020-02-03] MEDS: guaiFENesin ER TAB 600 MG TAB PO SCH ×2 (08:28→20:53)
[2020-02-03] MEDS: levETIRAcetam SUSPENSION 100 MG/ML BTTL PO SCH ×2 (09:17→20:54)
--- NOTE | 2020-02-03 11:13 | RAD ---
EXAM: Chest,1 View CLINICAL INDICATION: COVID-19 COMPARISON: 02/01/2020 FINDINGS: A single view of the chest was obtained. The heart size is normal. The pulmonary vascularity is unremarkable. Patchy infiltrates in the right mid to lower lung and left lung base are stable from prior. There is no pneumothorax. IMPRESSION: Stable bibasilar infiltrates, consistent with pneumonia. Electronically signed by: Russell Arango MD 02/03/2020 11:12 AM CDT
--- NOTE | 2020-02-03 20:33 | PN ---
SUPERVISING PHYSICIAN: Tom Boss M.D. DATE: 02/03/20 SUBJECTIVE: The patient is lying in bed. He is alert. He has no complaints. OBJECTIVE: VITAL SIGNS: Temperature 98.2, heart rate 80, blood pressure 115/72, respiratory rate 20, O2 saturation 97% on room air. RESPIRATORY: Diminished at the bases, but otherwise clear to auscultation. CARDIAC: Regular rate and rhythm. NEUROLOGIC: He is awake, alert and oriented times three. LABORATORY: WBCs are 9.8 with hemoglobin 12.7, hematocrit 35.8. He has a left shift on his differential. Fibrinogen is slightly improved to 484 and D-dimer is pending. Sodium 140, potassium 3.8, chloride 113, calcium 8, magnesium 2.1. LD is still elevated at 218. C reactive protein is 6.2. Chest x-ray is stable bibasilar infiltrates consistent with pneumonia. All other labs and films have been reviewed via the EMR. ASSESSMENT: 1. COVID-19 pneumonia. 2. Sepsis with septic shock secondary to #1, still requiring intermittent fluid boluses. 3. Electrolyte imbalance including hypokalemia, improving. 4. Renal insufficiency, likely due to prerenal azotemia and hypotension, now at baseline levels. 5. History of previous cerebrovascular accident with left sided residual effects. 6. History of cardiovascular disease. 7. Hypertension, but being hypotensive. 8. Gastroesophageal reflux disease. PLAN: We will continue present supportive care. He is off of oxygen. I will repeat his lab in the morning. If they continue to trend down, he should be able to be discharged. I would like to see his D-dimer prior to discharge so we can evaluate if he is improving or not. Hopefully, he can be discharged in the next 24 to [address] [facility]. #[id number] [facility]
[2020-02-03] MEDS: TAMSULOSIN 0.4 MG CAP PO SCH (20:53)
[2020-02-03] MEDS: FINASTERIDE 5 MG TAB PO SCH (20:53)
[2020-02-03] MEDS: FERROUS SULFATE 325 MG TAB PO SCH (20:54)
[2020-02-03] MEDS: SIMVASTATIN 20 MG TAB PO SCH (20:54)
[2020-02-03] MEDS: ENOXAPARIN SODIUM 80 MG/0.8 ML SYG SUBCU SCH (20:54)
[2020-02-03] MEDS: IV SET AND CAP CHANGE INJ INJ SCH (21:27)
[2020-02-04] MEDS: CEFEPIME 2 GM in SODIUM CHL 0.9% 50ML MIN-BAG+ 50 ML IVPB SCH ×2 (02:35→14:02)
[2020-02-04] MEDS: PANTOPRAZOLE SODIUM TAB 40 MG PO SCH (05:38)
[2020-02-04] MEDS: DEXAMETHASONE INJ 10 MG/ML VIAL IV SCH (08:30)
[2020-02-04] MEDS: FOLIC ACID 1 MG TAB PO SCH (08:31)
[2020-02-04] MEDS: GABAPENTIN 100 MG CAP PO SCH (08:31)
[2020-02-04] MEDS: ASCORBIC ACID 500 MG TAB PO SCH (08:31)
[2020-02-04] MEDS: CYANOCOBALAMIN 1,000 MCG TAB PO SCH (08:31)
[2020-02-04] MEDS: amLODIPine BESYLATE 5 MG TAB PO SCH (08:31)
[2020-02-04] MEDS: ASPIRIN (ENTERIC COATED) 81 MG TAB PO SCH (08:31)
[2020-02-04] MEDS: guaiFENesin ER TAB 600 MG TAB PO SCH (08:31)
[2020-02-04] MEDS: BIFIDOBACTERIUM INFANTIS 4 MG CAP PO SCH (08:31)
[2020-02-04] MEDS: CLOPIDOGREL 75 MG TAB PO SCH (08:31)
[2020-02-04] MEDS: PSEUDOEPHEDRINE HCL 30 MG TAB PO SCH (08:31)
[2020-02-04] MEDS: SODIUM CHLORIDE 0.9% (FLUSH) 10 ML SYG IV SCH (08:48)
[2020-02-04] MEDS: ALBUTEROL INHALER 64 PUFF/8GM INH SCH ×3 (09:02→20:14)
[2020-02-04] MEDS: AZITHROMYCIN IV 500 MG in SODIUM CHLORIDE 0.9% 250ML 250 ML IVPB SCH (10:26)
[2020-02-04] MEDS: levETIRAcetam SUSPENSION 100 MG/ML BTTL PO SCH (10:27)
[2020-02-04] MEDS: FLUTICASONE PROP 0.05% NASAL 16 GM BTTL BNAS SCH (10:28)
[2020-02-04] MEDS ORDERED: ACYCLOVIR 5% OINTMENT TOP SCH (10:30)
[2020-02-04] MEDS: ACYCLOVIR 5% OINTMENT TOP SCH ×2 (12:23→14:02)
[2020-02-04 18:44] VITALS: BP 115/72; TEMP 97.4; O2SAT 96
[2020-02-04] MEDS ORDERED: levETIRAcetam 250 MG TAB PO SCH (21:00)
--- NOTE | 2020-02-12 10:45 | DS ---
SUPERVISING PHYSICIAN: Juancarlos Luz MD ADMISSION DIAGNOSIS: 1. COVID-19 pneumonia. 2. Sepsis with septic shock secondary to #1. 3. Electrolytes imbalance including hypokalemia. 4. History of previous cerebrovascular accident with left sided residual effects. 5. History of previous cardiovascular disease. 6. Hypertension. 7. Gastroesophageal reflux disease. 8. Renal insufficiency likely prerenal azotemia secondary to underlying hypotension and volume depletion. DISCHARGE DIAGNOSIS: 1. COVID-19 pneumonia. 2. Sepsis with septic shock secondary to #1, still requiring intermittent fluid boluses. 3. Electrolyte imbalance including hypokalemia, improving. 4. Renal insufficiency, likely due to prerenal azotemia and hypotension, now at baseline levels. 5. History of previous cerebrovascular accident with left sided residual effects. 6. History of cardiovascular disease. 7. Hypertension, but being hypotensive. 8. Gastroesophageal reflux disease. REASON FOR HOSPITALIZATION: Mr. Virgen is a 69 year-old male patient that presented to the Emergency Room secondary to some confusion and fever that was reported at the detention where he resides at [facility]. Actually by the time the patient arrived to the Emergency Room, he was actually no longer confused or febrile. He did have a reported blood pressure there in the systolic in the 70s. The patient was endorsing he was feeling short of breath. On arrival to the Emergency Room, his blood pressures were in the 70s/50s with some noted rhonchi and rales on assessment. Initially on presentation to the Emergency Room, he was showing to be hypotensive with blood pressure 76/55, heart rate 85, he was afebrile at 96.9. He was actually showing saturations on room air at 93%. His chest x-ray showed hazy bilateral airspace opacities with the greatest in the lower lung zones concerning for multifocal pneumonia versus pulmonary edema. Laboratory studies showed he had a white count of 17,000 with hemoglobin 13.6, hematocrit 39.0 with a left shift. Coagulation studies showed he had an elevated D-dimer at 282, normal PT, PTT was elevated at 33.6. Chemistries showed he had a low potassium of 2.8 with an elevated creatinine of 1.38 but his lactic acid was elevated at 2.4. Troponin was normal at 0.02 but C reactive protein was elevated at 25.5. BNP is only slightly elevated at 156. Liver functions did show a slightly elevated AST at 70 but normal ALT. Urinalysis was just positive for some trace blood, otherwise within normal limits. Group A Strep was negative. Given that he was shown to be hypotensive, he was given fluids and started on antibiotics with Cefepime and azithromycin with concerns for multifocal pneumonia. He was also tested for COVID-19 and found to be positive. He is now going to be treated for COVID pneumonia with sepsis with underlying septic shock. He was given fluids in the Emergency Room, did show stabilization of his blood pressure improving up to 90/66 and repeat of his lactic acid after fluids showed that he had normalized to 1.6. He is now going to be admitted for treatment of underlying pneumonia secondary to COVID-19 and is essentially in stable condition at time of admission. LABORATORY: White count on admission was 12,600 with a left shift. At discharge, white count was 9,400 with resolved left shift. Coagulation studies showed initial D-dimer 282, went up to maximum of 1110 and was down to 853 prior to discharge. Fibrinogen was 534 and trending down to 414 prior to discharge. PT and PTT were within normal limits. Chemistries showed lactic acid on admission 2.4 and normalized to 1.6 after treatment. LDH showed elevation of maximum of 241 and was trending to 218 prior to discharge. Troponin within normal limits. BNP just slightly elevated at 156. C-reactive protein was elevated initially at 25.5 and on prior to discharge was down to 2.6. Liver functions were all within normal limits. CPK level did show elevation initially at 1424 and was down 27 prior to discharge. TSH was normal at 0.54. On discharge, sodium 140, potassium 3.8, carbon dioxide 19, anion gap 11, BUN 75, creatinine 0.82. Magnesium normal at 2.1, calcium 8.0 corrected to 8.2 for albumin of 2.4. Urinalysis showed trace lysed blood. Group A strep was negative. MICROBIOLOGY: Blood cultures remained negative after 5 days. Final strep culture report showed no beta hemolytic Streptococcus isolated. Respiratory panel detected COVID-19. Otherwise, all viral and bacterial targets were not detected. Please see those reports for details. RADIOLOGY: Initial chest x-ray on admission per radiologic interpretation showed heart upper limits of normal with mild central pulmonary vascular congestion. There was note of hazy bilateral airspace opacities, greater in the right lung zones, findings concerning for multifocal pneumonia versus pulmonary edema. Last chest x-ray done on 02/03/20 per radiologic interpretation showed stable bibasilar infiltrates consistent with pneumonia. HOSPITAL COURSE: Mr. Virgen was admitted as noted for COVID pneumonia. He was treated with cefepime, azithromycin, Decadron, Lovenox. He did show good response to treatment. His labs were trending to baseline levels and it was felt he was stabilized well enough to continue with outpatient management. PLAN: Mr. Virgen was discharged on 02/04/20 to return to [facility]. He was to resume his previous medications and previous nursing and diet orders. Medications were to continue with azithromycin 500 mg daily x3 days, Omnicef 300 mg b.i.d. x7 days, Decadron 6 mg daily x7 days, Eliquis 2.5 mg b.i.d. x30 days. He was to continue all previous medications as instructed per his discharge MAR. Oxygen was to titrate via nasal cannula to keep his SPO2 at 92 to 93%. He was to followup with his primary care physician, Dr. Coburn, in one to two weeks and return to the Emergency Department as needed. MEDICATIONS ON DISCHARGE: 1. Align 4 mg twice daily, #60, no refills. 2. Azithromycin 500 mg, #3, no refills. 3. Decadron 6 mg daily, #7, no refills. 4. Eliquis 2.5 mg twice daily, #30, no refills. 5. Cefdinir 300 mg twice daily, #14, no refills. 6. Albuterol inhaler 2 puffs as needed. 7. Albuterol inhaler 2 puffs 4 times a day for respiratory care, no refills. CONDITION ON DISCHARGE: Stable and improving. DISPOSITION: The patient was discharged back to [facility]. #[id number] [facility]
== END 2020-02-04 17:30 | DRG 871 ==
LOC: ER 12:56 → OBSVTOIN 16:39 → MS 16:39
PROVIDERS: ADMIT Nurse Practitioner Family; ATTEND Nurse Practitioner Family
DX: A41.89 Other specified sepsis (principal); U07.1 COVID-19; J12.89 Other viral pneumonia; R65.21 Severe sepsis with septic shock; I69.354 Hemiplegia and hemiparesis following cerebral infarction affecting left non-dominant side; E87.6 Hypokalemia; I25.10 Atherosclerotic heart disease of native coronary artery without angina pectoris; I10 Essential (primary) hypertension; K21.9 Gastro-esophageal reflux disease without esophagitis; E86.9 Volume depletion, unspecified; N28.9 Disorder of kidney and ureter, unspecified; R79.89 Other specified abnormal findings of blood chemistry; Z79.1 Long term (current) use of non-steroidal anti-inflammatories (NSAID); Z79.02 Long term (current) use of antithrombotics/antiplatelets; Z79.82 Long term (current) use of aspirin; Z79.899 Other long term (current) drug therapy